=== PATIENT | female | born 1995 | race Caucasian/White ===

== ENCOUNTER → 2017-08-23 | Outpatient (CLI) | payer BC | END | disposition home or self-care (01) | LOC: C.LAB 15:22 | PROVIDERS: ATTEND Otolaryngology | DX: J36 Peritonsillar abscess (principal) ==

== ENCOUNTER 2017-09-02 08:13 | Emergency (ER) | payer BC ==
[~2017-09-02] VITALS: Ht 165.1 cm; Wt 56.4 kg
[2017-09-02 08:19] VITALS: TEMP 37.1; Ht 165.1 cm; Wt 56.4 kg
[2017-09-02 08:51] LABS: HEMATOCRIT 39.9 % (37-47); MEAN CELL VOLUME 93.7 fL (80-100); MEAN CORPUSCULAR HEMOGLOBIN 32.6 pg (25-34); MEAN CORPUSCULAR HGB CONC 34.8 g/dl (32-36); MEAN PLATELET VOLUME 9.8 fL (7.4-10.4); PLATELET COUNT 286 K/uL (130-400); RED BLOOD COUNT 4.26 M/uL (4.2-5.4); WHITE BLOOD COUNT 25.83 K/uL (4.8-10.8)
[2017-09-02] MEDS ORDERED: MoRPHine SULFATE 4 MG/ML 1 ML CARP\\VIAL IV STA (08:51)
[2017-09-02] MEDS ORDERED: LIDOCAINE HCL 2% LOCAL 20 ML VIAL INFIL SCH (08:51)
[2017-09-02] MEDS ORDERED: LIDOCAINE HCL 2% 2 ML VIAL (20MG/ML) INFIL STA (08:51)
[2017-09-02] MEDS ORDERED: METHYLPREDNISOLONE 125 MG VIAL IV STA (08:51)
[2017-09-02] MEDS ORDERED: BENZOCAINE/TETRACAIN/BUTAM CAN 200 APPLN/20 GM CAN EXT STA (08:51)
[2017-09-02] MEDS ORDERED: AMPICILLIN/SULBACTAM SOD INJ 3,000 MG in SODIUM CHLORIDE 0.9% 100ML 100 ML IV ONE (09:00)
[2017-09-02 09:03] LABS: BUN/CREATININE RATIO 15.5 (10-20); CALCIUM 9.2 mg/dl (8.5-10.1); CREATININE 0.8 mg/dl (0.60-1.20); POTASSIUM 3.9 mmol/L (3.5-5.1)
[2017-09-02 09:19] LABS: BASO % 0.2 %; BASO ABS # 0.04 K/uL (0-0.2); COMPLETE YES; EOS % 0.7 %; IG% 0.5 %; LYMPH % 4.7 %; LYMPH ABS # 1.22 K/uL (1.2-3.4); NEUT % 88.9 %
[2017-09-02] MEDS ORDERED: CEFD300C2 PO (10:15)
--- NOTE | 2017-09-02 10:15 | HISTORY & PHYSICAL EXAMINATION ---
DATE OF ADMISSION: 09/02/2017 DIAGNOSIS: Left peritonsillar abscess, recurrent. HISTORY OF PRESENT ILLNESS: A 22-year-old with recurrent left peritonsillar abscess. She finished her antibiotics on Wednesday and again started having a sore throat. PAST MEDICAL HISTORY: Medical problems otherwise negative. PHYSICAL EXAMINATION: GENERAL: WNWD female in no acute distress, alert, oriented. HEAD: Normocephalic. EYES: Normal. EARS: Tympanic membranes intact. NOSE: Nasal passages swollen mucosa. THROAT: Oropharynx shows left tonsillar bulge with previous I&D site starting to drain. She does have moderate trismus. NECK: With left-sided greater than right side tender adenopathy with no obvious abscess formation in the neck. HEART: Regular. LUNGS: Clear. IMPRESSION: Left peritonsillar abscess. PLAN: For incision and drainage. PREOPERATIVE DIAGNOSIS: Left peritonsillar abscess. POSTOPERATIVE DIAGNOSIS: Same. PROCEDURE: Incision and drainage. SURGEON: Jessy Land MD ANESTHESIA: Strict local. COMPLICATIONS: None. BLOOD LOSS: 5 mL. HISTORY OF PRESENT ILLNESS: A 22-year-old with recurrent left peritonsillar abscess. PROCEDURE NOTE: The patient was in the semi-sitting position in the ER. The throat was sprayed with Cetacaine and then injected with 1% Xylocaine with 1:100,000 strength epinephrine. The abscess cavity was opened using a #11 blade and then spread opened using the tonsillar hemostat. Blood cultures were taken and the abscess cavity was suctioned clean. The patient tolerated the procedure well and will be treated with IV Unasyn and IV Decadron in the ER followed by p.o. antibiotics.
[2017-09-02 10:28] VITALS: BP 116/59; PULSE 78; O2SAT 98
--- NOTE | 2017-09-02 16:34 | EMERGENCY ROOM VISIT NOTE ---
History First contact with patient: 08:25 Chief Complaint: THROAT PAIN/INJURY Stated Complaint: ABSCESS IN THROAT History of Present Illness The patient is a 22 year old female who presents to the Emergency Room with complaints of recurrent left tonsillar abscess. The patient reports that she saw Dr. Land last Wednesday, 08/23 and had the tonsil drained. She was put on amoxicillin antibiotics which she completed Wednesday morning. The patient reports that she has now started to develop another abscess. She is unable to open the mouth or swallow because of the pain. While sitting in the waiting room, she reports that it started to drain again. She denies any fever, headache or neck pain. She rates her discomfort a 10 out of 10. The patient took an Advil at 7 AM with sips of water. Otherwise she denies any other food intake. Review of Systems HEENT: Denies dizziness, visual problems, hearing loss, tinnitus. Otherwise see history of present illness. PULMONARY: Denies cough, shortness of breath, sputum production or hemoptysis. CARDIOVASCULAR: Denies chest pain, palpitations, dyspnea on exertion, orthopnea or peripheral edema. GASTROINTESTINAL: Denies diarrhea, constipation, nausea, vomiting, or abdominal pain. GENITOURINARY: Denies dysuria, frequency, urgency or nocturia. NEUROLOGIC: Denies history of epilepsy, CVA, TIA or chronic headaches. MUSCULOSKELETAL: Denies history of joint tenderness/swelling. SKIN: Denies rashes or lesions. PSYCHIATRIC: Denies history of depression or mental illness. ENDOCRINE: Denies history of diabetes or thyroid disorders. Past Medical/Surgical History Medical Problems: (1) No significant past medical history Surgical Problems: (1) History of wisdom tooth extraction Family History FH: diabetes mellitus FH: hypertension Social History Smoking Status: Never Smoker Alcohol Use: occasionally Marital Status: single Housing Status: lives with roommate Occupation Status: [employer] student Current/Historical Medications Scheduled Cefdinir (Omnicef), 300 MG PO Q12H Physical Exam Vital Signs Date Time Temp Pulse Resp B/P (MAP) Pulse Ox O2 Delivery O2 Flow Rate FiO2 09/02/17 10:28 78 15 116/59 98 09/02/17 10:19 116/59 98 Room Air 09/02/17 09:08 75 15 100 Room Air 09/02/17 08:19 37.1 93 18 117/77 99 Room Air 09/02/17 08:19 100 Room Air Physical Exam CONSTITUTIONAL: Healthy and well nourished. Alert and oriented X 3 with positive affect. Patient appears in moderate discomfort from pain. HEENT: Normocephalic, atraumatic. Pupils equal, round and reactive. No obvious facial edema. Ears and nares are clear. OROPHARYNX: Patient has a positive trismus. I am barely able to visualize the left tonsil, however uvula is deviated to the right, and mild purulent drainage is noted. I do not appreciate Gurmeet's angina. NECK: Full active range of motion without discomfort. LYMPHATICS: Left anterior cervical adenopathy is noted. RESPIRATORY: Clear to auscultation bilaterally with no wheezing, crackles, rhonchi or stridor. CARDIOVASCULAR: Regular rate and rhythm with no murmurs, rubs or gallops. INTEGUMENTARY: No rash or other significant dermatologic conditions noted. NEUROLOGIC: Facial sensations are intact. Medical Decision & Procedures Laboratory Results 09/02/17 08:40 Red Blood Count 4.26, Mean Corpuscular Volume 93.7, Mean Corpuscular Hemoglobin 32.6, Mean Corpuscular Hemoglobin Concent 34.8, Mean Platelet Volume 9.8, Neutrophils (%) (Auto) 88.9, Lymphocytes (%) (Auto) 4.7, Monocytes (%) (Auto) 5.0, Eosinophils (%) (Auto) 0.7, Basophils (%) (Auto) 0.2, Neutrophils # (Auto) 22.98, Lymphocytes # (Auto) 1.22, Monocytes # (Auto) 1.30, Eosinophils # (Auto) 0.17, Basophils # (Auto) 0.04 09/02/17 08:40 Test 09/02/17 08:40 White Blood Count 25.83 K/uL (4.8-10.8) Red Blood Count 4.26 M/uL (4.2-5.4) Hemoglobin 13.9 g/dL (12.0-16.0) Hematocrit 39.9 % (37-47) Mean Corpuscular Volume 93.7 fL (80-100) Mean Corpuscular Hemoglobin 32.6 pg (25-34) Mean Corpuscular Hemoglobin Concent 34.8 g/dl (32-36) Platelet Count 286 K/uL (130-400) Mean Platelet Volume 9.8 fL (7.4-10.4) Neutrophils (%) (Auto) 88.9 % Lymphocytes (%) (Auto) 4.7 % Monocytes (%) (Auto) 5.0 % Eosinophils (%) (Auto) 0.7 % Basophils (%) (Auto) 0.2 % Neutrophils # (Auto) 22.98 K/uL (1.4-6.5) Lymphocytes # (Auto) 1.22 K/uL (1.2-3.4) Monocytes # (Auto) 1.30 K/uL (0.11-0.59) Eosinophils # (Auto) 0.17 K/uL (0-0.5) Basophils # (Auto) 0.04 K/uL (0-0.2) RDW Standard Deviation 41.1 fL (36.4-46.3) RDW Coefficient of Variation 12.3 % (11.5-14.5) Immature Granulocyte % (Auto) 0.5 % Immature Granulocyte # (Auto) 0.12 K/uL (0.00-0.02) Anion Gap 7.0 mmol/L (3-11) Est Creatinine Clear Calc Drug Dose 99.9 ml/min Estimated GFR () 123.0 Estimated GFR (Non- 106.1 BUN/Creatinine Ratio 15.5 (10-20) Calcium Level 9.2 mg/dl (8.5-10.1) The above labs were reviewed. The patient has a markedly leukocytosis with left shift and bandemia. Electrolytes are otherwise normal. Medications Administered Medications (Trade) Dose Ordered Sig/Stacey Route Start Time Stop Time Status Last Admin Dose Admin Ampicillin Sodium/ Sulbactam Sodium 3000 mg/Sodium Chloride 108 ml @ 200 mls/hr ONE ONCE IV 09/02/17 09:00 09/02/17 09:32 DC 09/02/17 09:28 200 MLS/HR Methylprednisolone Sodium Succinate (Solu-Medrol IV) 125 mg NOW STAT IV 09/02/17 08:51 09/02/17 08:54 DC 09/02/17 09:00 125 MG Morphine Sulfate (MoRPHine SULFATE INJ) 4 mg NOW STAT IV 09/02/17 08:51 09/02/17 08:54 DC 09/02/17 09:06 4 MG Benzocaine/ Butamben/ Tetracaine HCl (Cetacaine Can) 1 appln ONE STAT EXT 09/02/17 08:51 09/02/17 08:54 DC 09/02/17 09:00 1 APPLN ED Course Patient history and physical exam were performed. Nurse's notes were reviewed. Vital signs were reviewed, showing that the patient is afebrile and normotensive. IV access was established, and labs were drawn. The patient initially refused any analgesics. At this point, I discussed the case further with Dr. Land, who will be coming to the emergency department for I&D procedure. The patient was administered Unasyn 3 g IV infusion, along with Solu-Medrol 125 mg, morphine 4 mg and Zofran 4 mg IVP. Orders were also placed for Cetacaine spray and Xylocaine 2% solution for local anesthetic needs. I&D procedure was performed. Dr. Land discussed tonsillectomy with the patient when she returns home over went to break. The patient was provided contact information for his office should she wish additional local follow-up. Per Dr. Land's recommendation, the patient was provided a prescription for Omnicef 300 mg twice a day 10 days. The patient refused any prescription analgesics, reporting that she still has a prescription from her last visit with Dr. Land. She is welcome to return to the emergency department for any other further concerns. The patient was happy with plan of care, voiced understanding of all discharge instructions, and rated her discomfort a 2 out of 10 at the time of discharge. Medical Decision Medication Reconcilliation Current Medication List: was personally reviewed by me Blood Pressure Screening Patient's blood pressure: Normal blood pressure Impression Primary Impression: Tonsillar abscess Departure Information Prescriptions Cefdinir (OMNICEF) 300 Mg Cap 300 MG PO Q12H for 10 Days, #20 CAP Prov: Henry Arnold PA 09/02/17 Referrals No Doctor, Assigned (PCP) Patient Instructions [facility]
== END 2017-09-02 10:29 | disposition home or self-care (01) ==
LOC: C.EDB 08:15 → C.EDA 10:29
DX: J36 Peritonsillar abscess (principal)